=== PATIENT | male | born 1960 | race Caucasian/White ===

== ENCOUNTER 2017-02-03 13:05 | Emergency (ER) | payer OTHER ==
[~2017-02-03] VITALS: Ht 190.5 cm; Wt 85.1 kg
[2017-02-03 13:10] VITALS: BP 167/80; PULSE 88; RESP 16; TEMP 98.2; O2SAT 100
[2017-02-03] MEDS ORDERED: SODIUM CHLORIDE 0.9% FLUSH 10 ML FLUSH IVF PRN (13:30)
[2017-02-03] MEDS ORDERED: ASPIRIN 81 MG CHEW TAB CHEW ONE (13:30)
[2017-02-03 13:39] VITALS: O2SAT 100
[2017-02-03 13:53] LABS: CHLORIDE 106 MEQ/L (98-107); POTASSIUM 3.4 MEQ/L (3.5-5.1); SODIUM (NA) 142 MEQ/L (136-145)
[2017-02-03 13:57] LABS: ANION GAP 5 MEQ/L (5-15); BICARBONATE 31.2 MEQ/L (21.0-32.0); BLOOD UREA NITROGEN 10 MG/DL (7-18)
[2017-02-03 13:59] LABS: ALT (GPT) 15 U/L (12-78)
[2017-02-03 14:00] LABS: AST (GOT) 12 U/L (15-37); GLOMERULAR FILTRATION RATE 100 ML/MIN (>89)
[2017-02-03 14:01] LABS: TOTAL BILIRUBIN ADULT 0.4 MG/DL (0.2-1.0)
[2017-02-03 14:02] LABS: ALKALINE PHOSPHATASE 69 U/L (45-117); APTT (PATIENT) 25.9 SEC (24.3-30.1); AUTOMATED NEUTROPHIL # 5.8 TH/MM3 (1.8-7.7); BASOPHIL # 0.1 TH/MM3 (0-0.2); BASOPHIL % 0.7 % (0.0-2.0); EOSINOPHIL # 0.2 TH/MM3 (0-0.4); EOSINOPHIL % 2.3 % (0.0-4.0); HEMO FLAGS DIFF FINAL; INTERNATIONAL NORMALIZED RATIO 0.9 RATIO; LYMPH % 21.6 % (9.0-44.0); LYMPHOCYTE # 1.9 TH/MM3 (1.0-4.8); MEAN CELL VOLUME 90.3 FL (80.0-100.0); MEAN CORPUSCULAR HGB CONC 33.2 % (32.0-36.0); MONO % 7.7 % (0.0-8.0); NEUT % 67.7 % (16.0-70.0); PLATELET COUNT 203 TH/MM3 (150-450); PROTHROMBIN TIME - PATIENT 10.4 SEC (9.8-11.6); RED BLOOD COUNT 4.66 MIL/MM3 (4.50-5.90); RED CELL DISTRIBUTION WIDTH 13.3 % (11.6-17.2); WHITE BLOOD COUNT 8.7 TH/MM3 (4.0-11.0)
[2017-02-03 14:10] LABS: CREATINE KINASE 85 U/L (39-308)
--- NOTE | 2017-02-03 14:48 | RADHPO ---
EXAM DATE/TIME: 02/03/2017 13:54 [facility] COMPARISON: No previous studies available for comparison. INDICATIONS : Short of breath and chest pain MEDICAL HISTORY : Smoker SURGICAL HISTORY : None. ENCOUNTER: Initial ACUITY: 1 month PAIN SCORE: 5/10 LOCATION: Bilateral chest FINDINGS: Single AP view of the chest. The lungs are clear. Cardiomediastinal silhouette within normal limits. No evidence of pleural effusion or pneumothorax. CONCLUSION: No acute cardiopulmonary disease identified. Uriah Freedman MD on February 03, 2017 at 14:45 Board Certified Radiologist. This report was verified electronically.
[2017-02-03] MEDS ORDERED: IOHEXOL 350 MG/ML 10 ML VIAL (for RAD DIAG) IV ONE (14:56)
--- NOTE | 2017-02-03 15:24 | RADHPO ---
EXAM DATE/TIME: 02/03/2017 14:17 [facility] COMPARISON: No previous studies available for comparison. INDICATIONS : Left side chest pain. IV CONTRAST: 60 cc Omnipaque 350 (iohexol) IV RADIATION DOSE: 17.72 CTDIvol (mGy) MEDICAL HISTORY : Cerebrovascular disease. Pancreatitis. Diabetes SURGICAL HISTORY : None. ENCOUNTER: Initial ACUITY: 2 days PAIN SCALE: 4/10 LOCATION: Left chest TECHNIQUE: Volumetric scanning of the chest was performed using a pulmonary embolism protocol MIP images were re constructed. Using automated exposure control and adjustment of the mA and/or kV according to patien t size, radiation dose was kept as low as reasonably achievable to obtain optimal diagnostic quality images. FINDINGS: PULMONARY ARTERIES: No filling defects are seen in the pulmonary arteries through the segmental level. LUNGS: Mild patchy mixed nodular and groundglass opacity in the posterior left lower lobe likely representin g inflammatory change. Lungs otherwise clear. PLEURAE: There is no pleural thickening or pleural effusion. MEDIASTINUM: Coronary artery calcifications. Aorta normal diameter. MUSCULOSKELETAL: Within normal limits for patient age. MISCELLANEOUS: 3 cm left adrenal nodule with Hounsfield unit measurements indicating adenoma. Possible mild left hyd ronephrosis. CONCLUSION: 1. No evidence of pulmonary embolus. 2. Mild inflammatory change or atelectasis at the left lung base. 3. Coronary artery calcification. 4. Possible mild left hydronephrosis. 5. Left adrenal adenoma. Uriah Freedman MD on February 03, 2017 at 15:13 Board Certified Radiologist. This report was verified electronically.
--- NOTE | 2017-02-03 15:38 | PD ---
HPI Chief Complaint: Respiratory Symptoms Time Seen by Provider: 13:19 Travel History International Travel<30 days: No Contact w/Intl Traveler<30days: No History of Present Illness HPI Patient is a 56-year-old male comes in complaining of 3 weeks of chest pain, cough, shortness of breath. He says he has had pains that come and go all over his chest, most recently he was been on his left side under his arm. He says his symptoms are worse at night. He says that he seems to cough a lot, and this also worsens at night. He is a smoker. He denies nausea or vomiting. He denies fever, but has had sweating at night. PFSH Past Medical History Hx Anticoagulant Therapy: No Cerebrovascular Accident: Yes (CVA- 07/2013) Diabetes: Yes Patient Takes Glucophage: No Neurologic: Yes (NEUROPATHY) Pancreatitis: Yes Social History Alcohol Use: Yes (occ) Tobacco Use: Yes (1 PPD) Allergies-Medications (Allergen,Severity, Reaction): Coded Allergies: No Known Allergies (Unverified , 02/03/17) Reported Meds & Prescriptions Reported Meds & Active Scripts Active No Active Prescriptions or Reported Medications Review of Systems Except as stated in HPI: all other systems reviewed are Neg General / Constitutional: No: Fever, Chills HENT: No: Headaches, Lightheadedness Respiratory: Positive: Cough, Shortness of Breath Gastrointestinal: No: Nausea, Vomiting Genitourinary: No: Dysuria Musculoskeletal: No: Myalgias, Edema Skin: No Rash, No Change in Pigmentation Neurologic: No: Weakness, Dizziness Physical Exam Narrative GENERAL: Awake and alert, in no acute distress. SKIN: Focused skin assessment warm/dry. HEAD: Atraumatic. Normocephalic. EYES: Pupils equal and round. No scleral icterus. ENT: Mucous membranes pink and moist. NECK: Trachea midline. No JVD. CARDIOVASCULAR: Regular rate and rhythm. No murmur appreciated. RESPIRATORY: No accessory muscle use. Clear to auscultation. Breath sounds equal bilaterally. GASTROINTESTINAL: Abdomen soft, non-tender, nondistended. MUSCULOSKELETAL: No obvious deformities. No clubbing. No cyanosis. No edema. NEUROLOGICAL: Awake and alert. No obvious cranial nerve deficits. Motor grossly within normal limits. Normal speech. PSYCHIATRIC: Appropriate mood and affect; insight and judgment normal. Data Data Last Documented VS Vital Signs Date Time Temp Pulse Resp B/P Pulse Ox O2 Delivery O2 Flow Rate FiO2 02/03/17 13:39 100 Room Air 02/03/17 13:10 98.2 88 16 167/80 Orders Complete Blood Count With Diff (02/03/17 13:28) Comprehensive Metabolic Panel (02/03/17 13:28) B-Type Natriuretic Peptide (02/03/17 13:28) Act Partial Throm Time (Ptt) (02/03/17 13:28) Prothrombin Time / Inr (Pt) (02/03/17 13:28) Ckmb (Isoenzyme) Profile (02/03/17 13:28) Troponin I (02/03/17 13:28) Iv Access Insert/Monitor (02/03/17 13:28) Ecg Monitoring (02/03/17 13:28) Oximetry (02/03/17 13:28) Oxygen Administration (02/03/17 13:28) Chest, Single Ap (02/03/17 13:28) Ct Pulmonary Angiogram (02/03/17 13:28) Sodium Chloride 0.9% Flush (Ns Flush) (02/03/17 13:30) Aspirin Chew (Aspirin Chew) (02/03/17 13:30) Iohexol 350 Inj (Omnipaque 350 Inj) (02/03/17 14:56) Electrocardiogram (02/03/17 13:12) Labs Laboratory Tests Test 02/03/17 13:21 White Blood Count 8.7 TH/MM3 Red Blood Count 4.66 MIL/MM3 Hemoglobin 14.0 GM/DL Hematocrit 42.0 % Mean Corpuscular Volume 90.3 FL Mean Corpuscular Hemoglobin 30.0 PG Mean Corpuscular Hemoglobin 33.2 % Concent Red Cell Distribution Width 13.3 % Platelet Count 203 TH/MM3 Mean Platelet Volume 8.6 FL Neutrophils (%) (Auto) 67.7 % Lymphocytes (%) (Auto) 21.6 % Monocytes (%) (Auto) 7.7 % Eosinophils (%) (Auto) 2.3 % Basophils (%) (Auto) 0.7 % Neutrophils # (Auto) 5.8 TH/MM3 Lymphocytes # (Auto) 1.9 TH/MM3 Monocytes # (Auto) 0.7 TH/MM3 Eosinophils # (Auto) 0.2 TH/MM3 Basophils # (Auto) 0.1 TH/MM3 CBC Comment DIFF FINAL Differential Comment Prothrombin Time 10.4 SEC Prothromb Time International 0.9 RATIO Ratio Activated Partial 25.9 SEC Thromboplast Time Sodium Level 142 MEQ/L Potassium Level 3.4 MEQ/L Chloride Level 106 MEQ/L Carbon Dioxide Level 31.2 MEQ/L Anion Gap 5 MEQ/L Blood Urea Nitrogen 10 MG/DL Creatinine 0.80 MG/DL Estimat Glomerular Filtration 100 ML/MIN Rate Random Glucose 182 MG/DL Calcium Level 8.9 MG/DL Total Bilirubin 0.4 MG/DL Aspartate Amino Transf 12 U/L (AST/SGOT) Alanine Aminotransferase 15 U/L (ALT/SGPT) Alkaline Phosphatase 69 U/L Total Creatine Kinase 85 U/L Troponin I LESS THAN 0.02 NG/ML B-Type Natriuretic Peptide 80 PG/ML Total Protein 6.8 GM/DL Albumin 3.4 GM/DL [facility] Medical Decision Making Medical Screen Exam Complete: Yes Emergency Medical Condition: Yes Medical Record Reviewed: Yes Interpretation(s) ECG shows normal sinus rhythm at 67, no ST elevation or depression, normal intervals. Differential Diagnosis Pneumonia versus bronchitis versus COPD versus ACS Narrative Course Patient is a 56-year-old male who comes in complaining of 3 weeks of pains to his chest, cough, shortness of breath. The pains in his chest have been all over, sporadic, have been going on for 3 weeks, I believe it is unlikely that there cardiac. Exam shows no acute abnormalities. IV established, labs sent. Labs show no acute abnormalities. CT of the chest shows a left lower lung opacity. Patient will be discharged with prescription for Levaquin as well as albuterol. He is advised follow-up with a primary care doctor. Advised to return to the ED as needed for any worsening symptoms. Patient is comfortable with discharge at this time. Diagnosis Primary Impression: Pneumonia Qualified Code: J18.1 - Pneumonia of left lower lobe due to infectious organism Patient Instructions: Bacterial Pneumonia (ED), General Instructions Additional Instructions: Take all of your antibiotic. Use the albuterol as needed for cough and shortness of breath. Follow up with a primary care doctor. Return to the ED as needed for any worsening symptoms. Scripts Albuterol 8.5 GM Inh (Proair Hfa 8.5 GM Inh)90 Mcg/Act Aer2 Puff INH Q4-6H PRN ( SHORTNESS OF BREATH) #1 INHALER Ref 0 108 mcg/actuation Prov:Maria D Lowe MD 02/03/17 Levofloxacin 750 Mg [id number] Mg PO DAILY 7 Days Ref 0 Prov:Maria D Lowe MD 02/03/17 Disposition: 01 DISCHARGE HOME Condition: Stable Maria D Lowe MD Feb 03, 2017 15:38
[2017-02-03] MEDS ORDERED: LEVO750T3 PO (15:40)
[2017-02-03] MEDS ORDERED: ALBUAER3 INH (15:40)
[2017-02-03 15:46] VITALS: BP 173/69
--- NOTE | 2017-02-04 13:59 | EKG ---
Date Performed: 02/03/2017 Time Performed: 13:12:16 PTAGE: 56 years EKG: Sinus rhythm Normal ECG NO PREVIOUS TRACING DOCTOR: Mike Royal Interpretating Date/Time 02/04/2017 13:57:29
== END 2017-02-03 15:53 | disposition home or self-care (01) ==
LOC: PHED 13:05
DX: J18.1 Lobar pneumonia, unspecified organism (principal); E11.9 Type 2 diabetes mellitus without complications; F17.200 Nicotine dependence, unspecified, uncomplicated; Z86.79 Personal history of other diseases of the circulatory system; Z86.69 Personal history of other diseases of the nervous system and sense organs; Z87.19 Personal history of other diseases of the digestive system; R06.02 Shortness of breath
CPT/HCPCS: 71010; 71275; 80053; 82550; 83880; 84484; 85025; 85610; 85730; 93005; 99285; Q9967